=== PATIENT | female | born 1940 | race Caucasian/White ===

== ENCOUNTER 2017-03-24 08:36 | Outpatient (CLI) | payer OTHER ==
[2017-03-24 09:21] LABS: eGFR (African) > 60; eGFR (Non-African) > 60
== END 2017-03-24 08:37 ==
LOC: LAB 08:36
PROVIDERS: ATTEND Family Medicine
DX: I10 Essential (primary) hypertension (principal)
CPT/HCPCS: 36415; 80053; 80061

== ENCOUNTER 2017-03-29 15:17 | Outpatient (CLI) | payer OTHER | END 2017-03-29 15:18 | LOC: LAB 15:17 | PROVIDERS: ATTEND Family Medicine | DX: Z13.89 Encounter for screening for other disorder (principal) | CPT/HCPCS: 36415; 86803 ==

== ENCOUNTER 2017-11-07 10:30 | Outpatient (CLI) | payer OTHER ==
--- NOTE | 2017-11-07 11:09 | Diagnostic Imaging Report ---
NGOC LANDRY [facility] [address] [facility].[address] [address] Report Submission Date: Nov 07, 2017 11:01:42 AM COMMUNICATION INSTRUCTOR Patient Study Name: FELIZ CUNNINGHAM Date: Nov 07, 2017 10:46:10 AM COMMUNICATION INSTRUCTOR Modality Type: CR Gender: F Description: LOWER EXTREMITY : 36 Institution: [facility] Physician: NGOC LANDRY Examination: Plain film ankle History: Injury Findings: 3 views of the ankle demonstrates normal cortical margins. No fracture or dislocation. Talar dome is intact. Calcaneal spur. No soft tissue swelling. No joint effusion. Impression: Calcaneal spur. No evidence for fracture. Electronically signed on Nov 07, 2017 11:01:42 AM COMMUNICATION INSTRUCTOR by: Noe CRUZ
--- NOTE | 2017-11-07 11:10 | Diagnostic Imaging Report ---
[facility]DR[facility] [address] [facility] [address] [address] Report Submission Date: Nov 07, 2017 11:00:14 AM TECHNICAL SALES DIRECTOR Patient Study Name: FELIZ CUNNINGHAM Date: Nov 07, 2017 10:43:31 AM TECHNICAL SALES DIRECTOR Modality Type: CR Gender: F Description: PELVIS : 36 Institution: [facility] Physician: NGOC LANDRY Examination: Plain film hip History: Hip discomfort Comparison exams: None provided Findings: 2 views of the hip demonstrate normal cortical margins. No fracture no dislocation. Minimal acetabular spurring. No soft tissue abnormality. Impression: No acute osseous abnormality. Electronically signed on Nov 07, 2017 11:00:14 AM TECHNICAL SALES DIRECTOR by: Noe CRUZ
== END 2017-11-07 10:32 ==
LOC: RAD 10:30
PROVIDERS: ATTEND Family Medicine
DX: M25.571 Pain in right ankle and joints of right foot (principal); M25.551 Pain in right hip
CPT/HCPCS: 73502; 73610

== ENCOUNTER 2018-01-17 15:16 | Outpatient (CLI) | payer OTHER ==
--- NOTE | 2018-01-17 17:57 | Diagnostic Imaging Report ---
NGOC LANDRY~ [facility] [address] [facility].[address] [address] ~ ~ ~ ~ Report Submission Date: Jan 17, 2018 4:01:42 PM CDT Patient ~ Study Name: FELIZ CUNNINGHAM ~ Date: Jan 17, 2018 3:26:28 PM CDT ~ Modality Type: DX Gender: F ~ Description: LOWER EXTREMITY : 36 ~ Institution: [facility] Physician: NGOC LANDRY ~ ~ ~ Examination: Plain film right foot ~ History:~ Still having cuboidal area pain when walking, injury x 10 wks ago (Hx ) Findings: 3 views of the right foot demonstrates osteopenia. No fracture or dislocation. Articular degenerative changes. Calcaneal spurs. No soft tissue swelling. No joint effusion. Impression: Osteopenia and degenerative changes. No overt fracture. If suspecte bone contusion, recommend obtaining MRI to further evaluate. ~ Electronically signed on Jan 17, 2018 4:01:42 PM CDT by: Noe CRUZ
== END 2018-01-17 15:17 ==
LOC: RAD 15:16
PROVIDERS: ATTEND Family Medicine
DX: S99.911D Unspecified injury of right ankle, subsequent encounter (principal); Y99.9 Unspecified external cause status
CPT/HCPCS: 73630

== ENCOUNTER 2018-04-20 09:32 | Outpatient (CLI) | payer OTHER ==
[2018-04-20 10:23] LABS: eGFR (African) > 60; eGFR (Non-African) > 60
== END 2018-04-20 11:41 ==
LOC: LAB 09:32
PROVIDERS: ATTEND Family Medicine
DX: I10 Essential (primary) hypertension (principal)
CPT/HCPCS: 36415; 80053; 80061

== ENCOUNTER 2018-07-16 08:19 | Outpatient (CLI) | payer OTHER ==
[2018-07-16 14:47] LABS: eGFR (Non-African) > 60
== END 2018-07-16 08:20 ==
LOC: LAB 08:19
PROVIDERS: ATTEND Physical Medicine & Rehabilitation
DX: M81.0 Age-related osteoporosis without current pathological fracture (principal)
CPT/HCPCS: 36415; 80048; 82306

== ENCOUNTER 2019-07-02 12:48 | Outpatient (CLI) | payer OTHER ==
--- NOTE | 2019-07-02 13:15 | Diagnostic Imaging Report ---
NGOC LANDRY [facility] [address] [facility] [address] [place], [place]. [address] Report Submission Date: Jul 02, 2019 1:11:57 PM CDT Patient Study Name: FELIZ CUNNINGHAM Date: Jul 02, 2019 12:57:09 PM CDT Modality Type: CT\SR Gender: F Description: CT BRAIN W/O CONTRAST : 36 Institution: [facility] Physician: NGOC LANDRY Examination: CT head without contrast History: MEMORY LOSS Comparison exam: None available Technique: Noncontrast head CT protocol. Findings: Ventricles and sulci are consistent for patient age. Cerebrocerebellar parenchyma demonstrates periventricular low attenuation consistent with small vessel disease. No evidence for parenchymal hemorrhage. No evidence for mass or mass effect. No midline shift. No extra axial fluid collections. Partial visualization of the paranasal sinuses demonstrates scattered mucous thickening. Mastoid air cells, orbits, skull and scalp without gross irregularity. Impression: Age related changes. No acute parenchymal process. No hemorrhage. Electronically signed on Jul 02, 2019 1:11:57 PM CDT by: Noe Abdul [facility] CENTERLexie
[2019-07-02 13:43] LABS: eGFR (Non-African) > 60
[2019-07-03 11:49] LABS: T3-UPTAKE SCANNED REPORT
== END 2019-07-02 12:50 ==
LOC: RAD 12:48
PROVIDERS: ATTEND Family Medicine
DX: R41.3 Other amnesia (principal)
CPT/HCPCS: 36415; 70450; 80053; 82607; 84436; 84479